=== PATIENT | male | born 1990 | race Caucasian/White ===

== ENCOUNTER 2019-03-24 06:44 | Emergency (ER) | payer OTHER ==
[~2019-03-24] VITALS: Ht 177.8 cm; Wt 77.1 kg
[2019-03-24 06:46] VITALS: BP 95/50
== END 2019-03-24 07:15 | disposition home or self-care (01) ==
LOC: ER 06:44
DX: S90.822A Blister (nonthermal), left foot, initial encounter (principal); W18.42XA Slipping, tripping and stumbling without falling due to stepping into hole or opening, initial encounter; Y93.89 Activity, other specified; Y92.89 Other specified places as the place of occurrence of the external cause; Y99.8 Other external cause status